=== PATIENT | female | born 1950 | race Caucasian/White ===

== ENCOUNTER 2018-12-30 19:33 | Observation (INO) | payer OTHER ==
--- OUTSIDE RECORDS SUMMARY | 2018-12-30 19:36 | XMS REPORT ---
:1950 [facility] Organization [facility] Address [address] [place] [address] Dr. [address] [place] [id number] Care Team Providers Name Role Phone MANE GASTON Unavailable Unavailable MATT TRACEY Unavailable Unavailable Problems This patient has no known problems. Allergies, Adverse Reactions, Alerts This patient has no known allergies or adverse reactions. Medications This patient has no known medications. Results Test Description Test Time Test Comments Text Results Atomic Results Result Comments COCOLTEN IN 2017-11-20 Reason for exam:->right FLUOROSCOPIC UNIT OR/30 MINUTE 11:29:00 first metatarsophalangeal UTILIZED-NO INCREMENTS lateral colateral ligament INTERPRETATION reconstruction and REQUESTED. hardware removal TROLYTES 2017-11-14 12:35:00 Test Item Value Reference Range Comments SODIUM (BEAKER) (test xqgn=905) 141 meq/L 136-145 POTASSIUM (BEAKER) (test gors=824) 4.0 meq/L 3.5-5.1 CHLORIDE (BEAKER) (test maet=274) 103 meq/L 98-107 CO2 (BEAKER) (test ddwq=317) 27 meq/L 22-29 BUN AND [id number] 12:35:00 Test Item Value Reference Range Comments BLOOD UREA NITROGEN 21 mg/dL 7-21 (BEAKER) (test kqrl=109) CREATININE (BEAKER) (test 0.68 mg/dL 0.57-1.25 tbik=798) EGFR (BEAKER) (test 86 mL/min/1.73 sq m ESTIMATED GFR IS NOT amar=3894) ACCURATE CREATININE CLEARANCE IN PREDICTING GLOMERULAR FILTRATION RATE. ESTIMATED GFR IS NOT APPLICABLE FOR DIALYSIS PATIENTS. [id number] 12:05:00 Test Item Value Reference Range Comments HEMOGLOBIN (BEAKER) (test mina=974) 14.0 GM/DL 11.2-15.7 CT, CTA, [id number] 17:59:00Addendum BeginsREPORT STATUS:A Addendum: I agree with the previously described non vascular findings by Dr. Alexander. Signed: Alireza Rodriguez MDReport Verified Date/Time: 10/09/201717: 59:38 Reading Location: [place] [address] Angio Body Reading RoomAddendum EndsFINAL REPORT CT angiography of the thoracic aorta, 09 October 2007 INDICATION: This is a 67 year oldfemale with dilation of the aorta presents for assessment. This study is performed in an attempt toavoid an invasive procedure. TECHNIQUE: Spiral acquisition before and during intravenous contrast administration using a Quture multidetector CT scanner. Images were obtained before and during the dynamic passage of intravenous contrast material. Multi-planar 3-D volume-rendering reconstruction was performed using an independent workstation interactively by the interpreting physician as well as the 3-D specialist for optimal visualisation of the thoracic aorta and its proximal branches. Please refer tothe contrast sheet scanned in the EPIC system for the amount and route of contrast given. This exam was performed according to our departmental dose-optimisation programme, which includes automated exposure control, adjustment of the mA and/or kV according to patient size and/ or use of iterative reconstruction technique. Dose modulation, iterative reconstruction, and/or weight based adjustment of themA/kV was utilized to reduce the radiation dose to as low as reasonably achievable. FINDINGS: VASCULAR: The pericardium has normal appearance. No pericardial effusion is identified. The central pulmonary artery is normal in calibre. There is no evidence of central pulmonary artery embolism. The cardiac chambers demonstrate normal atrioventricular and ventriculoarterial concordance, and systemic and pulmonary venous return. The left ventricle is normal in size. Left atrial enlargement is identified.The coronary artery origins are normal. Coronal artery calcifications identified in the proximal LADterritory. In addition, of note, the right coronary artery arises at the level of the sinotubular junction , a common variant. Regarding the aorta, the aortic root is normal in size. There is ectasia isseen in the ascending thoracic aorta. The transverse arch and descending thoracic aorta is normal incourse and calibre. Some scattered calcific atherosclerosis is identified in the descending thoracicaorta. No aneurysmal dilation is present. There is no evidence of acute aortic pathology , specifically, there is no dissection, intramural hematoma, or contained rupture. The arch vessel branching pattern is normal and the visualised portion of the arch vessels are widely patent. Quantitative dimensions of the aorta are as follows: 3.3 cm at the sinuses of Valsalva (the sino-tubular junction is preserved); 3.4 x 3.3 cm at the proximal ascending thoracic aorta; 3.9 x 3.7 cm at the mid ascending aorta; 3.3 cm at the distal ascending aorta; 2.7 cm at the mid transverse arch; 2.9 cm at the proximal descending aorta; 2.8 cm at the mid descending aorta; 2.5 cm at the diaphragmatic hiatus. NON-VASCULAR: The visualised thyroid gland appears unremarkable. The chest wall and mediastinum appear normal.No significant adenopathy is identified in the mediastinum. In the lung windows, no obvious endobronchial lesion is seen and no pleural effusion is identified. Some apical scarring is noted. Overall, no suspicious pulmonary nodule is identified. Some dependent changes are seen in the lung bases. Limited images of the upper abdomen reveals no gross abnormality. No acute bony pathology is identified except for the presence of some degenerative changes. CONCLUSIONS: 1. Only minimal ectasia is seen in the mid ascending thoracic aorta, that measures approximately 3.9 x 3.7 cm in diameter. The aortic root is unremarkable. The transverse arch and descending thoracic aorta is normal in course and calibre. There is scattered calcifications seen in the descending thoracic aorta. There is no evidence of acute aortic pathology, specifically, there is no dissection, intramural hematoma, or contained rupture. Quantitative dimension of the aorta are as described above. 2. Normal coronary artery origins.Scattered coronary artery calcification is identified in the LAD territory. 3. No acute pulmonary pathology. 4. Other findings as described above. 5. An addendum will be dictated regarding the non- vascular findings by the Vehicle Operator Technician Radiologist. Signed: Mahesh Alexander Verified Date/Time: 10/09/2017 11:03:30 Reading Location: [place] [address] Cardiology MRI [id number] 11:16:00 Test Item Value Reference Range Comments POC-CREATININE (BEAKER) 0.6 mg/dL 0.6-1.3 TESTED AT [facility] [address] [facility] (test ceks=2468) [facility] [address] POC-EGFR ([facility]) (test 99 mL/min/1.73M2 tdqn=8616)
--- OUTSIDE RECORDS SUMMARY | 2018-12-30 19:36 | XMS REPORT | Clinical Summary ---
:1950 Author Organization [facility] Address [address] [place] [address] Care Team Providers Name Role Phone Mohamud Velez MD Primary Care Provider Allergies Active Allergy Reactions Severity Noted Date Comments Iodine And Iodide Containing Products Hives 05/19/2015 Hydrocodone-Acetaminophen Hives 11/14/2017 Medications Medication Sig Dispensed Refills Start Date End Date Status levothyroxine Take 75 mcg by 0 Active (SYNTHROID, LEVOTHROID) mouth Every 75 MCG tablet morning on an empty stomach. nebivolol (BYSTOLIC) 5 Take 5 mg by 0 Active MG tablet mouth daily. losartan (COZAAR) 25 MG Take 25 mg by 0 Active tablet mouth daily. pravastatin (PRAVACHOL) Take 40 mg by 0 Active 40 MG tablet mouth daily. Active Problems Problem Noted Date Hallux varus 11/14/2017 Social History Tobacco Use Types Packs/Day Years Used Date Former Smoker Quit: 1997 Smokeless Tobacco: Never Used Alcohol Use Drinks/Week oz/Week Comments Yes occasional Sex Assigned at Date Recorded Not on file Job Start Date Occupation Industry Not on file Not on file Not on file Travel History Travel Start Travel End No recent travel history available. Last Filed Vital Signs Not on file Plan of Treatment Not on file Implants Implanted Type Area Distribution Operation Supervisor Device Shelf Model / Identifier Expiration Serial / Lot Date Imp Sys Foreft Intrnl Brce Ar-1530p-Cp - [id number] Fracture/ Right: [employer] 12/09/2021 AR-1530P-CP / Implanted: Qty: 1 on 11/15/2017 by Renan Olsen MD [employer] / [id number] Results Not on fileafter 12/29/2017 Insurance Payer Benefit Plan / Group Subscriber ID Type Phone Address MEDICARE MEDICARE A B xxxxxxxxxx Medicare MCR SUPPLEMENT/INDIVIDUAL AARP/[facility] xxxxxxxxxxx [facility] Advance Directives For more information, please contact:[address] [phone] Code Status Date Activated Date Inactivated Comments Full Code 11/15/2017 7:04 AM 11/15/2017 12:23 PM This code status was determined by: Patient
--- OUTSIDE RECORDS SUMMARY | 2018-12-30 19:36 | XMS REPORT | Clinical Summary ---
:1950 Author Organization [facility] Address [address] [place] [address] Care Team Providers Name Role Phone Mohamud Velez MD Primary Care Provider Unavailable Allergies Active Allergy Reactions Severity Noted Date Comments Iodine Hives 09/14/2016 No Known Drug Allergies 10/24/2015 Medications Medication Sig Dispensed Refills Start Date End Date Status BYSTOLIC 5 mg tablet TAKE 1 TABLET 90 tablet 3 12/16/2017 Active ONCE DAILY pravastatin TAKE 1 TABLET 90 tablet 3 11/12/2018 Active (PRAVACHOL) 40 MG DAILY tablet losartan (COZAAR) 25 Take 1 tablet 90 tablet 0 12/03/2018 Active MG tablet (25 mg total) by mouth daily. levothyroxine Take 1 tablet 90 tablet 0 12/03/2018 Active (SYNTHROID, LEVOXYL) (75 mcg 75 mcg tablet total) by mouth every morning. levothyroxine TAKE 1 TABLET 90 tablet 3 10/10/2016 12/03/2018 Discontinued (SYNTHROID, LEVOXYL) BY MOUTH 75 mcg tablet EVERY MORNING predniSONE Pt will take 0 08/08/2017 10/09/2018 Discontinued (DELTASONE) 10 mg 10 mg (1 tablet tablet) po every 6 hours the day before her CT scan for IVP dye allergy pravastatin TAKE 1 TABLET 90 tablet 3 11/18/2017 11/12/2018 Discontinued (PRAVACHOL) 40 MG DAILY tablet levothyroxine TAKE 1 TABLET 90 tablet 3 11/18/2017 10/09/2018 Discontinued (SYNTHROID, LEVOXYL) EVERY MORNING 75 mcg tablet losartan (COZAAR) 25 TAKE 1 TABLET 90 tablet 3 11/18/2017 12/03/2018 Discontinued MG tablet DAILY BYSTOLIC 5 mg tablet TAKE 1 TABLET 90 tablet 1 12/16/2017 10/09/2018 Discontinued BY MOUTH EVERY DAY nebivolol (BYSTOLIC) Take 1 tablet 90 tablet 3 12/16/2017 10/09/2018 Discontinued 5 MG tablet (5 mg total) by mouth once daily. Active Problems Problem Noted Date Aortic valve disease 10/03/2017 Overview: mod AI per ECHO 11-12-13, but 09/2017 Dr Bynum noted no aortic valve disease. 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 Robbie Rawls and Dr Bynum at [facility]. Last visit 09/2017 he advised f/ u with MRI every 18-24 months rather than yearly. 09/2017: "Only minimal ectasia is seen in the mid [...] is no dissection, intramural hematoma, or contained rupture." Essential hypertension 10/24/2015 Pure hypercholesterolemia 10/24/2015 Acquired hypothyroidism 10/24/2015 Menopausal symptom 10/24/2015 Vitamin D deficiency 10/24/2015 Overview: Bone density 09/2018: Normal Encounters Date Type Specialty Care Team Description 11/12/2018 Refill Internal Medicine Mohamud Velez MD 10/17/2018 Telephone Internal Medicine Mohamud Velez MD 10/09/2018 Office Visit Internal Medicine Mohamud Velez Annual visit for general adult medical examination with abnormal findings (Primary Dx); MD [place] Thoracic aortic aneurysm without rupture (HCC); Pure hypercholesterolemia; Encounter for long-term (current) use of medications; Inflammatory osteoarthritis; Acquired hypothyroidism; Vitamin D deficiency; Non-rheumatic mitral regurgitation; Essential hypertension; Tinnitus, unspecified laterality 08/15/2018 Telephone Internal Medicine Mohamud Velez MD after 12/29/2017 Immunizations Name Dates Previously Given Next Due FLUZONE HIGH-DOSE PF 06/12/2017, 05/28/2017 Hep A / Hep B 10/17/2017, 03/27/2017 INFLUENZA QUAD 08/26/2016 Influenza, Unspecified 05/12/2018, 05/12/2014 Meningococcal MCV4P 03/27/2017 Pneumococcal Conjugate 13-Valent 02/02/2015 Pneumococcal Polysaccharide 08/12/2012 Tdap 05/12/2014 Zoster 08/12/2013 Zoster Vaccine Recombinant 11/11/2018, 12/17/2017 Family History Medical History Relation Name Comments Diabetes Brother Stroke Brother Stroke Brother Stroke Father Lung cancer Mother Relation Name Status Comments Brother Brother Father Mother Social History Tobacco Use Types Packs/Day Years Used Date Former Smoker Cigarettes Quit: 1986 Smokeless Tobacco: Never Used Alcohol Use Drinks/Week oz/Week Comments No Sex Assigned at Date Recorded Not on file Job Start Date Occupation Industry Not on file Not on file Not on file Travel History Travel Start Travel End No recent travel history available. Last Filed Vital Signs Vital Sign Reading Time Taken Blood Pressure 104/64 10/09/2018 1:38 PM [employer] Pulse 62 10/09/2018 1:34 PM [employer] Temperature 37.2 C (99 F) 10/09/2018 1:34 PM [employer] Respiratory Rate 16 10/09/2018 1:34 PM [employer] Oxygen Saturation 97% 10/09/2018 1:34 PM [employer] Inhaled Oxygen Concentration - - Weight 64.9 kg (143 lb) 10/09/2018 1:34 PM [employer] Height 158.8 cm (5' 2.5") 10/09/2018 1:34 PM [employer] Body Mass Index 25.74 10/09/2018 1:34 PM [employer] Plan of Treatment Date Type Specialty Care Team Description 10/12/2019 Office Visit Internal Medicine Mohamud Velez MD [address] [facility] [address] [place] [address] [id number] Health Maintenance Due Date Last Done Comments 65+ PNEUMOCOCCAL VACCINE (2 of 2 - 08/12/2017 02/02/2015, 08/12/2012 PPSV23) INFLUENZA VACCINE 03/12/2019 05/12/2018, 06/12/2017, 05/28/2017, Additional history exists BREAST CANCER SCREENING 10/08/2020 10/08/2018 COLON CANCER SCREENING 08/12/2024 08/12/2014 PNEUMOCOCCAL POLYSACCHARIDE VACCINE Completed 08/12/2012 AGE 65 AND OVER SHINGLES VACCINES Completed 11/11/2018, 12/17/2017 Procedures Procedure Name Priority Date/Time Associated Diagnosis Comments MICROSCOPIC Routine 10/09/2018 2:26 Results for this EXAMINATION PM [employer] procedure are in the results section. C-REACTIVE PROTEIN Routine 10/09/2018 2:26 Annual visit for Results for this PM [employer] general adult procedure are in medical examination the results with abnormal section. findings Thoracic aortic aneurysm without rupture (HCC) Pure hypercholesterolemia Encounter for long-term (current) use of medications Inflammatory osteoarthritis Acquired hypothyroidism Vitamin D deficiency Non-rheumatic mitral regurgitation Essential hypertension SEDIMENTATION RATE Routine 10/09/2018 2:26 Annual visit for Results for this [employer] general adult procedure are in medical examination the results with abnormal section. findings Thoracic aortic aneurysm without rupture (HCC) Pure hypercholesterolemia Encounter for long-term (current) use of medications Inflammatory osteoarthritis Acquired hypothyroidism Vitamin D deficiency Non-rheumatic mitral regurgitation Essential hypertension URINALYSIS, AUTOMATED Routine 10/09/2018 2:26 Annual visit for Results for this WITH MICROSCOPY [employer] general adult procedure are in medical examination the results with abnormal section. findings Thoracic aortic aneurysm without rupture (HCC) Pure hypercholesterolemia Encounter for long-term (current) use of medications Inflammatory osteoarthritis Acquired hypothyroidism Vitamin D deficiency Non-rheumatic mitral regurgitation Essential hypertension THYROID STIMULATING Routine 10/09/2018 2:26 Annual visit for Results for this HORMONE [employer] general adult procedure are in medical examination the results with abnormal section. findings Thoracic aortic aneurysm without rupture (HCC) Pure hypercholesterolemia Encounter for long-term (current) use of medications Inflammatory osteoarthritis Acquired hypothyroidism Vitamin D deficiency Non-rheumatic mitral regurgitation Essential hypertension MAGNESIUM LEVEL Routine 10/09/2018 2:26 Annual visit for Results for this PM [employer] general adult procedure are in medical examination the results with abnormal section. findings Thoracic aortic aneurysm without rupture (HCC) Pure hypercholesterolemia Encounter for long-term (current) use of medications Inflammatory osteoarthritis Acquired hypothyroidism Vitamin D deficiency Non-rheumatic mitral regurgitation Essential hypertension LIPID PANEL Routine 10/09/2018 2:26 Annual visit for Results for this PM [employer] general adult procedure are in medical examination the results with abnormal section. findings Thoracic aortic aneurysm without rupture (HCC) Pure hypercholesterolemia Encounter for long-term (current) use of medications Inflammatory osteoarthritis Acquired hypothyroidism Vitamin D deficiency Non-rheumatic mitral regurgitation Essential hypertension HEMOGLOBIN A1C Routine 10/09/2018 2:26 Annual visit for Results for this PM [employer] general adult procedure are in medical examination the results with abnormal section. findings Thoracic aortic aneurysm without rupture (HCC) Pure hypercholesterolemia Encounter for long-term (current) use of medications Inflammatory osteoarthritis Acquired hypothyroidism Vitamin D deficiency Non-rheumatic mitral regurgitation Essential hypertension COMPREHENSIVE Routine 10/09/2018 2:26 Annual visit for Results for this METABOLIC PANEL [employer] general adult procedure are in medical examination the results with abnormal section. findings Thoracic aortic aneurysm without rupture (HCC) Pure hypercholesterolemia Encounter for long-term (current) use of medications Inflammatory osteoarthritis Acquired hypothyroidism Vitamin D deficiency Non-rheumatic mitral regurgitation Essential hypertension CBC WITH PLATELET AND Routine 10/09/2018 2:26 Annual visit for Results for this DIFFERENTIAL PM [employer] general adult procedure are in medical examination the results with abnormal section. findings Thoracic aortic aneurysm without rupture (HCC) Pure hypercholesterolemia Encounter for long-term (current) use of medications Inflammatory osteoarthritis Acquired hypothyroidism Vitamin D deficiency Non-rheumatic mitral regurgitation Essential hypertension after 12/29/2017 Results Microscopic Examination (10/09/2018 2:26 PM [employer]) WBC, UA 0-5 0 - 5 /hpf [facility] RBC, UA None seen 0 - 2 /hpf [facility] Epithelial cells (non 0-10 0 - 10 /hpf [facility] renal) Mucus, UA Present Not Estab. [facility] Bacteria, UA None seen None seen/Few [facility] Specimen Narrative Performed At Performed at:[address] [place] [address] [id number] Chemistry Physics Teacher: Souleymane Cantrell MD, Phone:[phone] Performing Organization Address City/State/Zipcode Phone Number [facility] Urinalysis, automated with microscopy (10/09/2018 2:26 PM [employer]) Specific gravity, 1.010 1.005 - 1.030 [facility] urine pH, urine 6.0 5.0 - 7.5 [facility] Color, UA Yellow Yellow [facility] Appearance Clear Clear [facility] WBC esterase, urine Negative Negative [facility] Protein, UA Negative Negative/Trace [facility] Glucose, urine Negative Negative [facility] Ketones, UA Negative Negative [facility] Occult blood, urine Negative Negative [facility] Bilirubin, UA Negative Negative [facility] Urobilinogen, UA 0.2 0.2 - 1.0 mg/dL [facility] Nitrite, UA Negative Negative [facility] Microscopic CommentComment: [facility] examination Microscopic follows if indicated. Microscopic See below:Comment: [facility] examination Microscopic was indicated and was performed. Specimen Urine Narrative Performed At Performed at: - [id number] Chemistry Physics Teacher: Souleymane Cantrell MD, Phone:[phone] Performing Organization Address [facility] Phone Number [facility] Sedimentation rate (10/09/2018 2:26 PM [employer]) Sedimentation rate 2 0 - 40 mm/hr [facility] Specimen Blood Narrative Performed At Performed at: [id number] Chemistry Physics Teacher: Souleymane Cantrell MD, Phone:[phone] Performing Organization Address [facility] Phone Number [facility] CBC with platelet and differential (10/09/2018 2:26 PM [employer]) WBC 4.4 3.4 - 10.8 x10E3/uL [facility] RBC 4.46 3.77 - 5.28 [facility] x10E6/uL HGB 14.9 11.1 - 15.9 g/dL [facility] HCT 41.6 34.0 - 46.6 % [facility] MCV 93 79 - 97 fL [facility] MCH 33.4 (H) 26.6 - 33.0 pg [facility] MCHC 35.8 (H) 31.5 - 35.7 g/dL [facility] RDW 13.3 12.3 - 15.4 % [facility] Platelet count 186 150 - 379 x10E3/uL [facility] Neutrophils 52 Not Estab. % [facility] Lymphocytes 40 Not Estab. % [facility] Monocytes 8 Not Estab. % [facility] Eosinophils 0 Not Estab. % [facility] Basophils 0 Not Estab. % [facility] Neutrophils, absolute 2.3 1.4 - 7.0 x10E3/uL [facility] Lymphocytes, absolute 1.7 0.7 - 3.1 x10E3/uL [facility] Monocytes, absolute 0.3 0.1 - 0.9 x10E3/uL [facility] Eosinophils, absolute 0.0 0.0 - 0.4 x10E3/uL [facility] Basophils, absolute 0.0 0.0 - 0.2 x10E3/uL [facility] Immature granulocytes 0 Not Estab. % [facility] Immature grans (abs) 0.0 0.0 - 0.1 x10E3/uL [facility] Specimen Blood Narrative Performed At Performed at:[address] [place], [place] [id number] Chemistry Physics Teacher: Souleymane Cantrell MD, Phone:[phone] Performing Organization Address [facility] Phone Number [facility] C-reactive protein (10/09/2018 2:26 PM [employer]) Pathologist [facility] CRP 0.3 0.0 - 4.9 mg/L [facility] Specimen Blood Narrative Performed At Performed at:[address] [place], [place] [id number] Chemistry Physics Teacher: Souleymane Cantrell MD, Phone:[phone] Performing Organization Address [facility] Phone Number [facility] Thyroid stimulating hormone (10/09/2018 2:26 PM [employer]) [facility] TSH 0.982 0.450 - 4.500 uIU/mL [facility] Specimen Blood Narrative Performed At Performed at:[address] [place], [place] [id number] Chemistry Physics Teacher: Souleymane Cantrell MD, Phone:[phone] Performing Organization Address [facility] Phone Number [facility] Magnesium level (10/09/2018 2:26 PM [employer]) [facility] Magnesium 2.0 1.6 - 2.3 mg/dL [facility] Specimen Blood Narrative Performed At Performed at:[address] [place], [place] [id number] Chemistry Physics Teacher: Souleymane Cantrell MD, Phone:[phone] Performing Organization Address [facility] Phone Number [facility] Hemoglobin A1c (10/09/2018 2:26 PM [employer]) [facility] Hemoglobin A1C 5.6 4.8 - 5.6 % [facility] Comment: Prediabetes: 5.7 - 6.4 Diabetes: >6.4 Glycemic control for adults with diabetes: <7.0 Specimen Blood Narrative Performed At Performed at:01 - [facility] [address], [id number] Chemistry Physics Teacher: Souleymane Cantrell MD, Phone:[phone] Performing Organization Address [facility] Phone Number [facility] Lipid panel (10/09/2018 2:26 PM [employer]) Cholesterol 202 (H) 100 - 199 mg/dL [facility] Triglycerides 69 0 - 149 mg/dL [facility] HDL cholesterol 67 >39 mg/dL [facility] VLDL cholesterol len 14 5 - 40 mg/dL [facility] LDL cholesterol calculated 121 (H) 0 - 99 mg/dL [facility] Non-HDL cholesterol 135 (H) 0 - 129 mg/dL [facility] Specimen Blood Narrative Performed At Performed at: - [facility] [address] [place], [place] [id number] Chemistry Physics Teacher: Souleymane Cantrell MD, Phone:[phone] Performing Organization Address [facility] Phone Number [facility] Comprehensive metabolic panel (10/09/2018 2:26 PM [employer]) Glucose 93 65 - 99 mg/dL [facility] BUN, whole blood 13 8 - 27 mg/dL [facility] Creatinine 0.68 0.57 - 1.00 mg/dL [facility] EGFR Non-Afr. [place] 90 >59 mL/min/1.73 [facility] EGFR 103 >59 mL/min/1.73 [facility] BUN/creatinine ratio 19 12 - 28 [facility] Sodium 143 134 - 144 mmol/L [facility] Potassium 4.0 3.5 - 5.2 mmol/L [facility] Chloride 98 96 - 106 mmol/L [facility] CO2 27 20 - 29 mmol/L [facility] Calcium 10.0 8.7 - 10.3 mg/dL [facility] Protein 7.2 6.0 - 8.5 g/dL [facility] Albumin, S 5.0 (H) 3.6 - 4.8 g/dL [facility] Globulin, total 2.2 1.5 - 4.5 g/dL [facility] Albumin/globulin ratio 2.3 (H) 1.2 - 2.2 [facility] Total bilirubin 0.6 0.0 - 1.2 mg/dL [facility] Alkaline phosphatase 57 39 - 117 IU/L [facility] AST 25 0 - 40 IU/L [facility] ALT 22 0 - 32 IU/L [facility] Specimen Blood Narrative Performed At Performed at:01 - [facility] [place] [facility] [address], [id number] Chemistry Physics Teacher: Souleymane Cantrell MD, Phone:[phone] Performing Organization Address City/State/Zipcode Phone Number [facility] after 12/29/2017 Insurance Payer Benefit Plan / Subscriber ID Effective Phone Address Type Group Dates MEDICARE MEDICARE PART xxxxxxxxxxx 2014-Pres [place], [place] Medicare A AND B ent [employer] xxxxxxxxxx 2018-[facility] Commercial INSURANCE INSURANCE ent Advance Directives Patient has advance care planning documents on file. For more information, please contact:[place] [address]
[2018-12-30 20:27] LABS: Absolute Lymphocytes (CBC) 0.6 K/uL (0.7-4.9); Absolute Monocytes 0.7 K/uL (0.1-1.3); Absolute Neutrophil 5.6 K/uL (1.8-8.0); Basophils % 0.2 % (0-1.3); Eosinophils % 0.2 % (0-4.4); Hematocrit 40.5 % (36.0-45.0); Lymphocytes % 8.2 % (15.3-44.8); MPV 8.7 fL (7.6-11.3); Monocytes % 9.8 % (3.3-12.3); RBC Red Blood Cell Count 4.13 M/uL (3.86-4.86)
--- NOTE | 2018-12-30 20:28 | RAD REPORT ---
EXAM DESCRIPTION: RAD - Chest Pa And Lat (2 Views) - 12/30/2018 8:23 pm CLINICAL HISTORY: Cough and congestion, fever COMPARISON: None. TECHNIQUE: PA and lateral views of the chest were obtained. FINDINGS: The lungs are normal volume. Right lung field is clear. There is patchy lower left lung fi eld opacification. This is most likely a mild or early pneumonia in the lingula of the left upper lob e. No failure or volume overload. Heart size is normal and central vasculature is within normal [place] its. No pleural effusion or pneumothorax seen. No acute bony finding noted. No aortic abnormality. IMPRESSION: Small or early pneumonia in the anterior left lung base.
[2018-12-30 20:35] LABS: Protime INR 1.08
--- NOTE | 2018-12-30 20:41 | ER ---
Nurse's Notes [facility] Name: Leonie Jasso Age: 68 yrs Sex: Female : 1950 Arrival Date: 12/30/2018 Time: 19:36 Bed 28 Private MD: Diagnosis: Pneumonia due to other specified bacteria;Fever, unspecified;Weakness;Chronic obstructive pulmonary disease, unspecified;Hypoxemia Presentation: 12/30 19:36 Presenting complaint: Patient states: I have been having high fever since 3 days ago at ca1 102F and there is nothing I do at home to keep it down. I took baby aspirins and Tylenol for fever. Starting yesterday I felt short of breath at rest and my chest feels heavy. I feel like I can't take a deep breath. Pt denies any cough now or prior to the fever. Pt reported to have had diarrhea a day before the fever started. Transition of care: patient was not received from another setting of care. Onset of symptoms was December 30, 2018. Risk Assessment: Do you want to hurt yourself or someone else? Patient reports no desire to harm self or others. Initial Sepsis Screen: Does the patient meet any 2 criteria? No. Patient's initial sepsis screen is negative. Does the patient have a suspected source of infection? No. Patient's initial sepsis screen is negative. Care prior to arrival: None. 19:36 Method Of Arrival: Wheelchair ca1 19:36 Acuity: DOMENICO 3 ca1 Triage Assessment: 19:36 General: Appears in no apparent distress. comfortable, ill, Behavior is calm, ca1 cooperative, appropriate for age. Pain: Denies pain. Respiratory: Reports shortness of breath at rest since yesterday Onset: The symptoms/episode began/occurred yesterday, the patient has mild shortness of breath. Historical: - Allergies: 19:36 Iodine; ca1 19:36 Iodinated Contrast Media - IV Dye; ca1 - Home Meds: 19:36 pravastatin oral oral [Active]; levothyroxine oral [Active]; Bystolic oral oral ca1 [Active]; - PMHx: 19:36 Hypertension; Mitral Valve Regurgitation; Hypothyroidism; ca1 - PSHx: 19:36 Hysterectomy; Trigger Finger Surgery; Bunionectomy; ca1 - Immunization history:: Adult Immunizations up to date, Flu vaccine is up to date. - Social history:: Smoking status: Patient/guardian denies using tobacco. - Ebola Screening: : No symptoms or risks identified at this time. Screenin:40 Abuse screen: Denies threats or abuse. Denies injuries from another. Nutritional ca1 screening: No deficits noted. Tuberculosis screening: No symptoms or risk factors identified. Fall Risk None identified. Assessment: 19:40 General: Appears in no apparent distress. ill, Behavior is calm, cooperative, ca1 appropriate for age. Pain: Denies pain. Neuro: Level of Consciousness is awake, alert, obeys commands, Oriented to person, place, time, situation. Cardiovascular: Heart tones S1 S2 present Capillary refill < 3 seconds Patient's skin is warm and dry. Cardiovascular: Rhythm is sinus rhythm. Respiratory: Reports shortness of breath at rest since yesterday Airway is patent Respiratory effort is even, unlabored, Breath sounds are clear bilaterally. Denies cough. GI: Abdomen is flat, non-distended, Bowel sounds present X 4 quads. Abd is soft and non tender X 4 quads. : No deficits noted. No signs and/or symptoms were reported regarding the genitourinary system. EENT: No deficits noted. No signs and/or symptoms were reported regarding the EENT system. Derm: Skin is intact, is healthy with good turgor, Skin is pink, warm \T\ dry. Musculoskeletal: Circulation, motion, and sensation intact. Capillary refill < 3 seconds. 20:34 Reassessment: Patient appears in no apparent distress at this time. Patient and/or ca1 family updated on plan of care and expected duration. Pain level reassessed. Patient is alert, oriented x 3, equal unlabored respirations, skin warm/dry/pink. 21:29 Reassessment: Patient appears in no apparent distress at this time. Patient is alert, ca1 oriented x 3, equal unlabored respirations, skin warm/dry/pink. 22:24 Reassessment: Patient appears in no apparent distress at this time. Patient and/or ca1 family updated on plan of care and expected duration. Pain level reassessed. Patient is alert, oriented x 3, equal unlabored respirations, skin warm/dry/pink. Pending Room Assignment. 23:00 Reassessment: Patient appears in no apparent distress at this time. Patient is alert, ca1 oriented x 3, equal unlabored respirations, skin warm/dry/pink. Pt instructed on NPO prior to wheeling upstairs. Vital Signs: 19:36 BP 118 / 63; Pulse 86; Resp 19 S; Temp 102.9(O); Pulse Ox 92% on R/A; Weight 67.13 kg; ca1 Height 5 ft. 3 in. (160.02 cm); Pain 0/10; 20:45 BP 128 / 68; Pulse 92; Resp 16 S; Pulse Ox 93% on R/A; ca1 21:37 BP 121 / 64; Pulse 86; Resp 17 S; Pulse Ox 99% on R/A; ca1 22:25 BP 102 / 64; Pulse 86; Resp 19 S; Temp 100.4(O); Pulse Ox 95% on R/A; ca1 22:59 BP 106 / 63; Pulse 90; Resp 18 S; Temp 99.3(O); Pulse Ox 98% on R/A; ca1 19:36 Body Mass Index 26.22 (67.13 kg, 160.02 cm) ca1 ED Course: 19:36 Patient arrived in ED. am2 19:36 Arm band placed on right wrist. EKG completed in triage. Results shown to MD. ca1 19:39 Ara Ulrich, RN is Primary Nurse. ca1 19:40 Patient has correct armband on for positive identification. Placed in gown. Bed in low ca1 position. Side rails up X2. machine straw hat presser on. Pulse ox on. NIBP on. Warm blanket given. 19:44 Darwin Gilbert MD is Attending Physician. asia 20:05 No provider procedures requiring assistance completed. Inserted saline lock: 20 gauge ca1 in left antecubital area, using aseptic technique. Blood collected. 20:05 First set of blood cultures drawn by me. ca1 20:05 Initial lab(s) drawn, by ED staff, sent to lab. jp3 20:20 Second set of blood cultures drawn EKG done, by ED staff, reviewed by Darwin Gilbert MD.jp3 20:21 Triage completed. ca1 20:24 Chest Pa And Lat (2 Views) XRAY In Process Unspecified. EDMS 20:40 Mague Zaman MD is Hospitalizing Provider. asia 22:05 Urine collected: clean catch specimen, clear, natividad colored, Amount Voided: 120mL. jp3 22:16 Urine Dipstick--Ancillary (enter results) Sent. jp3 22:17 Urine Culture Sent. jp3 22:59 Patient admitted, IV remains in place. ca1 Administered Medications: 20:50 Drug: Tylenol 650 mg Route: PO; ca1 23:04 Follow up: Response: No adverse reaction; Temperature is decreased ca1 21:00 Drug: NS 0.9% 1000 ml Route: IV; Rate: 1 bolus; Site: left antecubital; ca1 23:05 Follow up: Urine output 310 ml; Response: No adverse reaction; IV Status: Completed ca1 infusion 21:00 Drug: SOLU-Medrol 125 mg Route: IVP; Site: left antecubital; ca1 23:04 Follow up: Response: No adverse reaction; Marked relief of symptoms ca1 21:04 CANCELLED (Duplicate Order): Atropine 0.5 mg IVP once asia 21:05 Drug: Xopenex 2.5 mg Route: Inhalation; ca1 21:05 Drug: AtroVENT Aerosol 0.5 mg Route: Inhalation; ca1 23:04 Follow up: Response: No adverse reaction; Temperature is decreased ca1 21:10 Drug: Rocephin - (cefTRIAXone) 2 grams Route: IVPB; Infused Over: 30 mins; Site: left ca1 antecubital; 22:00 Follow up: Response: No adverse reaction; IV Status: Completed infusion ca1 21:20 Drug: Zithromax 500 mg Route: IVPB; Infused Over: 1 hrs; Site: left antecubital; ca1 23:06 Follow up: Response: No adverse reaction; IV Status: Completed infusion ca1 Output: 23:05 Urine: 310ml; Total: 310ml. ca1 Outcome: 20:41 Decision to Hospitalize by Provider. [facility] 22:59 Admitted to Med/surg accompanied by tech, family with patient, via wheelchair, room ca1 212, with chart, Report called to Heidy Ferrari RN 22:59 Condition: stable 22:59 Instructed on the need for admit. 23:39 Patient left the ED. mg2 Signatures: Dispatcher [employer] EDMS Darwin Gilbert MD MD cha Moreno, Amanda am2 Joel Murray RN RN mg2 Jose F Ybarra jp3 Ara Ulrich RN RN ca1 Corrections: (The following items were deleted from the chart) 22:28 22:25 BP 121 / 66; Pulse 86bpm; Resp 19bpm; Spontaneous; Pulse Ox 99% RA; Temp 100.4F ca1 Oral; ca1
--- NOTE | 2018-12-30 20:41 | EDPHYS ---
Physician Documentation [facility] Name: Leonie Jasso Age: 68 yrs Sex: Female : 1950 Arrival Date: 12/30/2018 Time: 19:36 Bed 28 Private MD: ED Physician Darwin Gilbert HPI: 12/30 20:36 This 68 yrs old Female presents to ER via Wheelchair with complaints of asia Fever, Shortness Of Breath. 20:36 The patient reports fever, that was measured at 102.5 degrees Fahrenheit. Onset: The asia symptoms/episode began/occurred 3 day(s) ago. Modifying factors: there are no obvious modifying factors. Associated signs and symptoms: Pertinent positives: chills, cough, with yellow sputum. Severity of symptoms: At their worst the symptoms were mild in the emergency department the symptoms are unchanged. The patient has not experienced similar symptoms in the past. Historical: - Allergies: 19:36 Iodine; ca1 19:36 Iodinated Contrast Media - IV Dye; ca1 - Home Meds: 19:36 pravastatin oral oral [Active]; levothyroxine oral [Active]; Bystolic oral oral ca1 [Active]; - PMHx: 19:36 Hypertension; Mitral Valve Regurgitation; Hypothyroidism; ca1 - PSHx: 19:36 Hysterectomy; Trigger Finger Surgery; Bunionectomy; ca1 - Immunization history:: Adult Immunizations up to date, Flu vaccine is up to date. - Social history:: Smoking status: Patient/guardian denies using tobacco. - Ebola Screening: : No symptoms or risks identified at this time. ROS: 20:37 Eyes: Negative for injury, pain, redness, and discharge, ENT: Negative for injury, asia pain, and discharge, Neck: Negative for injury, pain, and swelling, Cardiovascular: Negative for chest pain, palpitations, and edema, Abdomen/GI: Negative for abdominal pain, nausea, vomiting, diarrhea, and constipation, Back: Negative for injury and pain, : Negative for injury, bleeding, discharge, and swelling, MS/Extremity: Negative for injury and deformity, Skin: Negative for injury, rash, and discoloration, Neuro: Negative for headache, weakness, numbness, tingling, and seizure, Psych: Negative for depression, anxiety, suicide ideation, homicidal ideation, and hallucinations, Allergy/Immunology: Negative for hives, rash, and allergies, Endocrine: Negative for neck swelling, polydipsia, polyuria, polyphagia, and marked weight changes, Hematologic/Lymphatic: Negative for swollen nodes, abnormal bleeding, and unusual bruising. 20:37 Constitutional: Positive for chills, fever. 20:37 Respiratory: Positive for cough, shortness of breath, wheezing, expiratory. Exam: 20:37 Head/Face: Normocephalic, atraumatic. Eyes: Pupils equal round and reactive to light, asia extra-ocular motions intact. Lids and lashes normal. Conjunctiva and sclera are non-icteric and not injected. Cornea within normal limits. Periorbital areas with no swelling, redness, or edema. ENT: Nares patent. No nasal discharge, no septal abnormalities noted. Tympanic membranes are normal and external auditory canals are clear. Oropharynx with no redness, swelling, or masses, exudates, or evidence of obstruction, uvula midline. Mucous membranes moist. Neck: Trachea midline, no thyromegaly or masses palpated, and no cervical lymphadenopathy. Supple, full range of motion without nuchal rigidity, or vertebral point tenderness. No Meningismus. Chest/axilla: Normal chest wall appearance and motion. Nontender with no deformity. No lesions are appreciated. Cardiovascular: Regular rate and rhythm with a normal S1 and S2. No gallops, murmurs, or rubs. Normal PMI, no JVD. No pulse deficits. Abdomen/GI: Soft, non-tender, with normal bowel sounds. No distension or tympany. No guarding or rebound. No evidence of tenderness throughout. Back: No spinal tenderness. No costovertebral tenderness. Full range of motion. Female : Normal external genitalia. Skin: Warm, dry with normal turgor. Normal color with no rashes, no lesions, and no evidence of cellulitis. MS/ Extremity: Pulses equal, no cyanosis. Neurovascular intact. Full, normal range of motion. Neuro: Awake and alert, GCS 15, oriented to person, place, time, and situation. Cranial nerves II-XII grossly intact. Motor strength 5/5 in all extremities. Sensory grossly intact. Cerebellar exam normal. Normal gait. Psych: Awake, alert, with orientation to person, place and time. Behavior, mood, and affect are within normal limits. 20:37 Constitutional: The patient appears febrile. 20:37 Respiratory: the patient does not display signs of respiratory distress, Respirations: no acute changes, labored breathing, is not present, Breath sounds: decreased breath sounds, that are mild, are located in both bases, rhonchi, that are mild, are located in both bases, are heard in the left lower lobe and left posterior lower lobe. Vital Signs: 19:36 BP 118 / 63; Pulse 86; Resp 19 S; Temp 102.9(O); Pulse Ox 92% on R/A; Weight 67.13 kg; ca1 Height 5 ft. 3 in. (160.02 cm); Pain 0/10; 20:45 BP 128 / 68; Pulse 92; Resp 16 S; Pulse Ox 93% on R/A; ca1 21:37 BP 121 / 64; Pulse 86; Resp 17 S; Pulse Ox 99% on R/A; ca1 22:25 BP 102 / 64; Pulse 86; Resp 19 S; Temp 100.4(O); Pulse Ox 95% on R/A; ca1 22:59 BP 106 / 63; Pulse 90; Resp 18 S; Temp 99.3(O); Pulse Ox 98% on R/A; ca1 19:36 Body Mass Index 26.22 (67.13 kg, 160.02 cm) ca1 MDM: 19:44 Patient medically screened. [facility] 20:39 Data reviewed: vital signs, nurses notes, lab test result(s), EKG, radiologic studies, asia plain films. 12/30 19:46 Order name: Basic Metabolic Panel [facility] 12/30 19:46 Order name: CBC with Diff [facility] 12/30 19:46 Order name: LFT's [facility] 12/30 19:46 Order name: Magnesium [facility] 12/30 19:46 Order name: NT PRO-BNP [facility] 12/30 19:46 Order name: PT-INR; Complete Time: 21:05 [facility] 12/30 19:46 Order name: Troponin (emerg Dept Use Only); Complete Time: 21:05 [facility] 12/30 19:46 Order name: Blood Culture Adult (2) [facility] 12/30 19:46 Order name: Lactate; Complete Time: 21:05 [facility] 12/30 19:46 Order name: Procalcitonin; Complete Time: 21:05 [facility] 12/30 19:46 Order name: Sputum Culture [facility] 12/30 19:47 Order name: Urine Culture [facility] 12/30 19:47 Order name: Basic Metabolic Panel; Complete Time: 21:05 [facility] 12/30 19:47 Order name: CBC with Automated Diff; Complete Time: 20:35 [facility] 12/30 19:46 Order name: Chest Pa And Lat (2 Views) XRAY; Complete Time: 20:35 [facility] 12/30 19:47 Order name: Liver (Hepatic) Function; Complete Time: 21:05 [facility] 12/30 19:47 Order name: Magnesium; Complete Time: 21:05 [facility] 12/30 19:47 Order name: NT PRO-BNP; Complete Time: 21:05 [facility] 12/30 21:27 Order name: Flu [facility] 12/30 21:27 Order name: Strep [facility] 12/30 21:43 Order name: Procalcitonin [facility] 12/30 22:11 Order name: Urine Dipstick--Ancillary (enter results) [facility] 12/30 22:15 Order name: Urine Dipstick-Ancillary [facility] 12/30 19:46 Order name: EKG; Complete Time: 19:48 [facility] 12/30 19:46 Order name: Cardiac monitoring; Complete Time: 20:15 [facility] 12/30 19:46 Order name: EKG - Nurse/Tech; Complete Time: 20:15 [facility] 12/30 19:46 Order name: IV Saline Lock; Complete Time: 20:15 [facility] 12/30 19:46 Order name: Labs collected and sent; Complete Time: 20:16 [facility] 12/30 19:46 Order name: O2 Per Protocol; Complete Time: 20:16 [facility] 12/30 19:46 Order name: O2 Sat Monitoring; Complete Time: 20:56 [facility] 12/30 19:47 Order name: Urine Dipstick-Ancillary (obtain specimen); Complete Time: 22:17 [facility] 12/30 21:43 Order name: NPO; Complete Time: 22:16 EDKY Administered Medications: 20:50 Drug: Tylenol 650 mg Route: PO; ca1 23:04 Follow up: Response: No adverse reaction; Temperature is decreased ca1 21:00 Drug: NS 0.9% 1000 ml Route: IV; Rate: 1 bolus; Site: left antecubital; ca1 23:05 Follow up: Urine output 310 ml; Response: No adverse reaction; IV Status: Completed ca1 infusion 21:00 Drug: SOLU-Medrol 125 mg Route: IVP; Site: left antecubital; ca1 23:04 Follow up: Response: No adverse reaction; Marked relief of symptoms ca1 21:04 CANCELLED (Duplicate Order): Atropine 0.5 mg IVP once asia 21:05 Drug: Xopenex 2.5 mg Route: Inhalation; ca1 21:05 Drug: AtroVENT Aerosol 0.5 mg Route: Inhalation; ca1 23:04 Follow up: Response: No adverse reaction; Temperature is decreased ca1 21:10 Drug: Rocephin - (cefTRIAXone) 2 grams Route: IVPB; Infused Over: 30 mins; Site: left ca1 antecubital; 22:00 Follow up: Response: No adverse reaction; IV Status: Completed infusion ca1 21:20 Drug: Zithromax 500 mg Route: IVPB; Infused Over: 1 hrs; Site: left antecubital; ca1 23:06 Follow up: Response: No adverse reaction; IV Status: Completed infusion ca1 Disposition: 12/30/18 20:41 Hospitalization ordered by Mague Zaman for Inpatient Admission. Preliminary diagnosis are Pneumonia due to other specified bacteria, Fever, unspecified, Weakness, Chronic obstructive pulmonary disease, unspecified, Hypoxemia. - Bed requested for Telemetry/MedSurg (Inpatient). - Status is Inpatient Admission. mg2 - Condition is Fair. - Problem is new. - Symptoms have improved. UTI on Admission? No Signatures: Dispatcher [employer] EDDarwin Garibay MD MD cha Garcia, Cindy, RN RN cg Joel Murray RN RN mg2 Ara Ulrich RN RN ca1 Corrections: (The following items were deleted from the chart) 21:04 20:36 Atropine 0.5 mg IVP once ordered. [facility] 22:31 20:41 Hospitalization Ordered by Mague Zaman MD for Inpatient Admission. Preliminary cg diagnosis is Pneumonia due to other specified bacteria; Fever, unspecified; Weakness; Chronic obstructive pulmonary disease, unspecified; Hypoxemia. Bed requested for Telemetry/MedSurg (Inpatient). Status is Inpatient Admission. Condition is Fair. Problem is new. Symptoms have improved. UTI on Admission? No. asia 23:39 22:31 12/30/2018 20:41 Hospitalization Ordered by Mague Zaman MD for Inpatient mg2 Admission. Preliminary diagnosis is Pneumonia due to other specified bacteria; Fever, unspecified; Weakness; Chronic obstructive pulmonary disease, unspecified; Hypoxemia. Bed requested for Telemetry/MedSurg (Inpatient). Status is Inpatient Admission. Condition is Fair. Problem is new. Symptoms have improved. UTI on Admission? No. cg
[2018-12-30 20:50] LABS: ALT/SGPT 27 U/L (12-78); AST/SGOT 19 U/L (15-37); Albumin 3.7 g/dL (3.4-5.0); Alkaline Phosphatase 70 U/L (45-117); BUN Blood Urea Nitrogen 15 mg/dL (7-18); Bicarbonate 25 mmol/L (21-32); Bilirubin Direct 0.2 mg/dL (0-0.2); Bilirubin Total 0.7 mg/dL (0.2-1.0); Glucose Level 80 mg/dL (74-106); Magnesium 2.1 mg/dL (1.8-2.4); NT PRO-BNP 218 pg/mL (<125); Potassium 3.9 mmol/L (3.5-5.1); Protein, Total 7.8 g/dL (6.4-8.2); Sodium Level 136 mmol/L (136-145); Troponin (Emerg Dept Use Only) < 0.02 ng/mL (0.0-0.045)
[2018-12-30] MEDS ORDERED: METHYLPREDNISOLONE 125 MG INJ ONE (21:13)
[2018-12-30] MEDS ORDERED: LEVALBUTEROL 1.25 MG/3 ML NEB ONE (21:14)
[2018-12-30] MEDS ORDERED: AZITHROMYCIN 500 MG INJ IVPB ONE (21:14)
[2018-12-30] MEDS ORDERED: ATROPINE SULF 1 MG/10 ML SYR IV ONE (21:15)
[2018-12-30] MEDS ORDERED: NA CHLORIDE 0.9% 1,000 ML ONE (21:15)
[2018-12-30] MEDS ORDERED: NA CHLORIDE 0.9% 250 ML ONE (21:15)
[2018-12-30] MEDS ORDERED: CEFTRIAXONE/SWI 1gm 1 GM/10 ML SYR ONE ×2 (21:16→23:15)
[2018-12-30] MEDS ORDERED: ACETAMINOPHEN 325 MG TABLET ONE (21:22)
[2018-12-30] MEDS ORDERED: IPRATROPIUM BROM 0.5MG/2.5ML ONE (21:23)
[2018-12-30] MEDS ORDERED: ONDANSETRON 4 MG/2 ML VIAL IV PRN (21:37)
[2018-12-30] MEDS ORDERED: ACETAMINOPHEN 500 MG TAB PO PRN (21:37)
[2018-12-30] MEDS: NA CHLORIDE 0.9% 1,000 ML IV SCH (22:00)
[2018-12-30 22:14] LABS: Urine Blood TRACE (NEG); Urine Glucose NEGATIVE (NEG); Urine Protein TRACE (NEG); Urine Specific Gravity 1.025 (1.005-1.030); Urine pH 5.5 (5.0-7.0)
[2018-12-31] MEDS: NA CHLORIDE 0.9% 1,000 ML IV SCH (00:16)
[2018-12-31] MEDS: IPRATROPIUM BROM 0.5MG/2.5ML NEB SCH ×2 (00:45→08:00)
[2018-12-31] MEDS: ALBUTEROL 2.5 MG/3 ML NEB SOL NEB SCH ×2 (00:45→08:00)
[2018-12-31 01:15] VITALS: BMI 26.9
[2018-12-31] MEDS ORDERED: CEFTRIAXONE/SWI 1gm 1 GM/10 ML SYR ONE (04:38)
--- NOTE | 2018-12-31 05:11 | P.HP ---
Certification for Inpatient Patient admitted to: Observation With expected LOS: <2 Midnights Patient will require the following post-hospital care: None Practitioner: I am a practitioner with admitting privileges, knowledge of patient current condition, hospital course, and medical plan of care. Services: Services provided to patient in accordance with Admission requirements found in Title 42 Section 412.3 of the Code of Federal Regulations Patient History Date of Service: 12/30/18 Reason for admission: Left lower lobe pneumonia History of Present Illness: Pt is a 68yo who was admitted to the hospital with persistent coughing. [place] , Dr. Mortensenson. Patient got home on Saturday and by Saturday she had a cough and fevers. Her fevers were not resolving so they brought her into the emergency room for further evaluation. In the emergency room, her workup revealed a left lingular pneumonia. Pt was admitted to the hospital for further treatment under observation. Allergies Iodinated Contrast- Oral and IV Dye Allergy (Verified 12/30/18 22:49) Hives/Rash iodine Allergy (Verified 12/30/18 22:49) Hives/Rash Iodine and Iodide Containing Produc Adverse Reaction (Verified 12/30/18 22:49) Hives/Rash Home Medications: Levothyroxine [Synthroid] 75 mcg PO DAILY 12/30/18 Losartan Potassium 1 tab PO BEDTIME 12/30/18 Meloxicam [Mobic*] 1 tab PO BID 12/30/18 Nebivolol HCl [Bystolic*] 1 tab PO BEDTIME 12/30/18 Pravastatin Sodium 40 mg PO BEDTIME 12/30/18 - Past Medical/Surgical History Has patient received pneumonia vaccine in the past: Yes Diabetic: No -: Hypothyroidism -: High cholesterol prevention -: Mitral valve regurgitation -: Hypertension -: Bunionectomy both feet -: Trigger finger both releases -: Hysterectomy - Family History Brother Medical History: Other (see notes) Notes: ALS Father Medical History: Hypertension, Other (see notes) Notes: Stroke BRothers Medical History: Hypertension, Diabetes - Social History Smoking Status: Former smoker Alcohol use: Yes CD- Drugs: No Caffeine use: Yes Place of Residence: Home Review of Systems 10-point ROS is otherwise unremarkable Physical Examination - Vital Signs Temperature: 97.5 F Blood Pressure: 114/65 Pulse: 69 Respirations: 20 Pulse Ox (%): 94 - Physical Exam General: Alert, In no apparent distress, Oriented x3 HEENT: Atraumatic, PERRLA, Mucous membr. moist/pink, EOMI, Sclerae nonicteric Neck: Supple, 2+ carotid pulse no bruit, No LAD, Without JVD or thyroid abnormality Respiratory: Clear to auscultation bilaterally, Normal air movement Cardiovascular: Regular rate/rhythm, Normal S1 S2, No murmurs Gastrointestinal: Normal bowel sounds, Soft and benign, Non-distended, No tenderness Musculoskeletal: No clubbing, No swelling, No tenderness Integumentary: No rashes Neurological: Normal gait, Normal speech, Normal strength at 5/5 x4 extr, Normal tone, Sensation intact, Cranial nerves 3-12 intact, Normal affect Lymphatics: No axilla or inguinal lymphadenopathy - Studies Laboratory Data (last 24 hrs) 12/30/18 20:05: PT 12.7 H, INR 1.08 12/30/18 20:05: WBC 6.9, Hgb 13.8, Hct 40.5, Plt Count 141 L 12/30/18 20:05: Sodium 136, Potassium 3.9, BUN 15, Creatinine 0.71, Glucose 80, Magnesium 2.1, Total Bilirubin 0.7, AST 19, ALT 27, Alkaline Phosphatase 70 Microbiology Data (last 24 hrs): 12/30/18 21:25 Nasopharnyx Influenza Type A Antigen Screen - Final 12/30/18 21:25 Nasopharnyx Influenza Type B Antigen Screen - Final Assessment & Plan - Problems (Diagnosis) (1) Left lower lobe pneumonia Current Visit: Yes Status: Acute (2) History of essential hypertension Current Visit: Yes Status: Acute - Plan 1. Continue with IV antibiotics 2. Awaiting sputum and blood culture 3. Repeat chest x-ray 4. Continue with nebs as needed 5. O2 per protocol 6. Continue with gentle hydration 7. Repeat labs including CBC and renal function in a.m. 8. GI and DVT prophylaxis Discharge Plan: Home Plan to discharge in: 24 Hours - Advance Directives Does patient have a Living Will: Yes Does patient have a Durable POA for Healthcare: Yes - Code Status/Comfort Care Code Status Assessed: Yes Code Status: Full Code Critical Care: No Time Spent Managing PTS Care (In Minutes): 45
[2018-12-31] MEDS ORDERED: CEFTRIAXONE 1 GM/NS 50 ML 1 GM/50 ML BAG IV SCH (06:00)
[2018-12-31 06:02] LABS: ALT/SGPT 23 U/L (12-78); AST/SGOT 17 U/L (15-37); Albumin 3.2 g/dL (3.4-5.0); Alkaline Phosphatase 61 U/L (45-117); BUN Blood Urea Nitrogen 14 mg/dL (7-18); Bicarbonate 23 mmol/L (21-32); Bilirubin Total 0.2 mg/dL (0.2-1.0); Glucose Level 170 mg/dL (74-106); HDL Cholesterol 62 mg/dL (40-60); LDL Cholesterol, Calculated 135 (<130); Magnesium 2.2 mg/dL (1.8-2.4); NT PRO-BNP 251 pg/mL (<125); Phosphorus 3.2 mg/dL (2.5-4.9); Protein, Total 7.1 g/dL (6.4-8.2); Sodium Level 142 mmol/L (136-145)
[2018-12-31 06:16] LABS: Absolute Lymphocytes (CBC) 0.3 K/uL (0.7-4.9); Absolute Monocytes 0.1 K/uL (0.1-1.3); Absolute Neutrophil 5.4 K/uL (1.8-8.0); Eosinophils % 0.1 % (0-4.4); Hematocrit 36.9 % (36.0-45.0); Lymphocytes % 5.7 % (15.3-44.8); Monocytes % 1.8 % (3.3-12.3); RBC Red Blood Cell Count 3.81 M/uL (3.86-4.86)
[2018-12-31] MEDS ORDERED: LEVOTHYROXINE SOD 0.075 MG TAB PO SCH (07:00)
--- NOTE | 2018-12-31 07:27 | RAD REPORT ---
EXAM DESCRIPTION: RAD - Chest Single View - 12/31/2018 7:12 am CLINICAL HISTORY: Pneumonia COMPARISON: December 30 TECHNIQUE: AP portable chest image was obtained [id number] hours . FINDINGS: Left base infiltrate has show no improvement from prior day imaging. No new right lung fie ld finding. Heart and vasculature are normal. No measurable pleural effusion and no pneumothorax. No acute bony abnormality seen. No acute aortic findings suspected. IMPRESSION: Stable appearance to the left lung base pneumonia. No new or progressive finding.
[2018-12-31 07:54] LABS: Blood Morphology Comment NOT SEEN (NOT SEEN); Platelet Estimate ADEQ; Urine White Blood Cell Casts OK
[2018-12-31] MEDS ORDERED: AZITHROMYCIN IV 500 MG in NA CHLORIDE 0.9% 250 ML IVPB SCH ×2 (08:00→21:00)
[2018-12-31] MEDS ORDERED: ENOXAPARIN 40 MG/0.4 ML SQ SCH (09:00)
[2018-12-31] MEDS ORDERED: CEFTRIAXONE/SWI 1gm 1 GM/10 ML SYR IV SCH (09:00)
--- NOTE | 2018-12-31 10:28 | EKG ---
Test Date: 2018-12-31 Test Time: 00:37:52 Tangled Yarn Spool Straightener: RT MEASUREMENT RESULTS: Intervals: Rate: 75 HI: 176 QRSD: 92 QT: 434 QTc: 484 [place]: P: 54 HI: 176 QRS: -52 T: 27 INTERPRETIVE STATEMENTS: Normal sinus rhythm Left anterior fascicular block Nonspecific T wave abnormality Prolonged QT Abnormal ECG Compared to ECG 12/30/2018 19:59:23 T-wave abnormality now present Prolonged QT interval now present Electronically Signed On 12-31-18 10:28:09 CDT by Chad Ho
[2018-12-31 10:30] VITALS: O2SAT 95
--- NOTE | 2018-12-31 10:30 | EKG ---
Test Date: 2018-12-30 Test Time: 19:59:23 Structural Steel Fitter: MADELINE MEASUREMENT RESULTS: Intervals: Rate: 84 UT: 142 QRSD: 86 QT: 358 QTc: 423 [place]: P: 15 UT: 142 QRS: -64 T: 55 INTERPRETIVE STATEMENTS: Normal sinus rhythm Left anterior fascicular block Abnormal ECG Compared to ECG 12/30/2018 19:58:55 No significant changes Electronically Signed On 12-31-18 10:28:46 CDT by Chad Ho
[2018-12-31 10:43] VITALS: BP 121/60; TEMP 97
--- NOTE | 2018-12-31 12:11 | P.SSS ---
Patient History Date of Service: 12/31/18 Reason for admission: Left lower lobe pneumonia History of Present Illness: Pt is a 68yo who was admitted to the hospital with persistent coughing. [place] , Ulysses Romero. Patient got home on Saturday and by Saturday she had a cough and fevers. Her fevers were not resolving so they brought her into the emergency room for further evaluation. In the emergency room, her workup revealed a left lingular pneumonia. Pt was admitted to the hospital for further treatment under observation. Allergies Allergies Iodinated Contrast- Oral and IV Dye Allergy (Verified 12/30/18 22:49) Hives/Rash iodine Allergy (Verified 12/30/18 22:49) Hives/Rash Iodine and Iodide Containing Produc Adverse Reaction (Verified 12/30/18 22:49) Hives/Rash Home Medications: Levothyroxine [Synthroid*] 75 mcg PO DAILY 12/30/18 Losartan Potassium 1 tab PO BEDTIME 12/30/18 Meloxicam [Mobic*] 1 tab PO BID 12/30/18 Nebivolol HCl [Bystolic*] 1 tab PO BEDTIME 12/30/18 Pravastatin Sodium 40 mg PO BEDTIME 12/30/18 - Past Medical/Surgical History Has patient received pneumonia vaccine in the past: Yes Diabetic: No -: Hypothyroidism -: High cholesterol prevention -: Mitral valve regurgitation -: Hypertension -: Bunionectomy both feet -: Trigger finger both releases -: Hysterectomy - Family History Brother -: Other (see notes) Notes: ALS Father -: Hypertension, Other (see notes) Notes: Stroke BRothers -: Hypertension, Diabetes - Social History Smoking Status: Former smoker Alcohol use: Yes CD- Drugs: No Caffeine use: Yes Place of Residence: Home Review of Systems 10-point ROS is otherwise unremarkable Physical Examination - Vital Signs Temperature: 97 F Blood Pressure: 121/60 Pulse: 74 Respirations: 18 Pulse Ox (%): 95 - Physical Exam General: Alert, In no apparent distress HEENT: Atraumatic, PERRLA, Mucous membr. moist/pink, EOMI, Sclerae nonicteric Neck: Supple, 2+ carotid pulse no bruit, No LAD, Without JVD or thyroid abnormality Respiratory: Clear to auscultation bilaterally, Normal air movement Cardiovascular: Regular rate/rhythm, Normal S1 S2 Gastrointestinal: Normal bowel sounds, No tenderness Musculoskeletal: No tenderness Integumentary: No rashes Neurological: Normal gait, Normal speech, Normal strength at 5/5 x4 extr, Normal tone, Normal affect Lymphatics: No axilla or inguinal lymphadenopathy - Studies Laboratory Data (last 24 hrs) 12/30/18 20:05: PT 12.7 H, INR 1.08 12/30/18 20:05: WBC 6.9, Hgb 13.8, Hct 40.5, Plt Count 141 L 12/30/18 20:05: Sodium 136, Potassium 3.9, BUN 15, Creatinine 0.71, Glucose 80, Magnesium 2.1, Total Bilirubin 0.7, AST 19, ALT 27, Alkaline Phosphatase 70 Microbiology Data (last 24 hrs): 12/30/18 21:25 Nasopharnyx Influenza Type A Antigen Screen - Final 12/30/18 21:25 Nasopharnyx Influenza Type B Antigen Screen - Final - Diagnosis (Problem(s)) (1) Left lower lobe pneumonia Current Visit: Yes Status: Acute Plan: Viral pneumonia Qualifiers: Pneumonia type: due to unspecified organism Qualified Code(s): J18.1 - Lobar pneumonia, unspecified organism (2) History of essential hypertension Current Visit: Yes Status: Chronic Treatment Summary: Overall during the hospital stay patient remained stable The patient was initially admitted to the hospital for pneumonia. X-ray was consistent with left lingual pneumonia. Pro calcitonin and a PVC were negative for bacterial pneumonia. Patient most likely has viral pneumonia. Patient was given antibiotics x1 here in the hospital. Upon resolution of her symptoms she was then discharged home under stable condition. Patient was asked to follow up with primary care provider and has supportive management. No antibiotics were prescribed as pro calcitonin and white counts were within normal limits. Patient was given incentive spirometer to use at home patient was also asked to follow up with pulmonology in about 1-2 days post discharge. If no improvement seen patient was asked to return to the ER for further care. Patient demonstrate understanding and thus she was discharged home under stable condition - Disposition Disposition: ROUTINE DISCHARGE Condition: GOOD Diet: Regular Activity: Ad tracy
[2018-12-31] MEDS ORDERED: NEBIVOLOL HCL 5 MG TAB PO SCH (21:00)
[2018-12-31] MEDS ORDERED: LOSARTAN POTASSIUM 50 MG TABLET PO SCH (21:00)
[2018-12-31] MEDS ORDERED: ATORVASTATIN 10 MG TAB PO SCH (21:00)
== END 2018-12-31 12:59 | disposition home or self-care (01) ==
LOC: ER 19:33 → ERHOLD 21:48 → 2ND 23:01
PROVIDERS: ADMIT Hospitalist; ATTEND Family Medicine
DX: J18.1 Lobar pneumonia, unspecified organism (principal); I10 Essential (primary) hypertension; I44.4 Left anterior fascicular block; R94.31 Abnormal electrocardiogram [ECG] [EKG]; E03.9 Hypothyroidism, unspecified; I34.0 Nonrheumatic mitral (valve) insufficiency; Z79.1 Long term (current) use of non-steroidal anti-inflammatories (NSAID); Z79.899 Other long term (current) drug therapy; Z87.891 Personal history of nicotine dependence
CPT/HCPCS: 96365 ×2; 93005 ×2; 87040 ×2; 87070; 87088; 85025 ×2; 80048; 36415; 83735 ×2; 84100; 85610; 80061; 80076; 87081; 83605 ×2; 81003; 84484; 80053; 84145; 83880 ×2; 87804 ×2; 71045; 71046; 94640; 94760 ×2; 96375; 99285; J0456; J1650; J0696 ×4; J7030 ×2; J2930; G0378 ×2; 87086

== ENCOUNTER 2019-12-16 05:55 | Day surgery (SDC) | payer OTHER ==
[2019-12-10 09:57] LABS: Protime INR 0.94
--- NOTE | 2019-12-10 10:05 | RAD REPORT ---
EXAM DESCRIPTION: Kanwal So (2 Views)12/10/2019 9:46 am CLINICAL HISTORY: Preop for rotator cuff surgery COMPARISON: December 2018 FINDINGS: The lungs appear clear of acute infiltrate. The heart is normal size. The aorta is tortuo us/ectatic IMPRESSION: No acute abnormalities displayed
--- NOTE | 2019-12-10 14:42 | EKG ---
Test Date: 2019-12-10 Test Time: 08:19:20 Loop Machine Operator: JULIA MEASUREMENT RESULTS: Intervals: Rate: 56 WA: 158 QRSD: 90 QT: 442 QTc: 426 [place]: P: 15 WA: 158 QRS: -42 T: -29 INTERPRETIVE STATEMENTS: Sinus bradycardia with sinus arrhythmia Left axis deviation Nonspecific T wave abnormality Abnormal ECG Compared to ECG 12/31/2018 00:37:52 Left-axis deviation now present Sinus rhythm no longer present Left anterior fascicular block no longer present Prolonged QT interval no longer present T-wave abnormality still present Electronically Signed On 12-10-19 14:41:03 CDT by Hema Goins
--- OUTSIDE RECORDS SUMMARY | 2019-12-16 06:02 | XMS REPORT ---
:1950 Author Organization [facility] t Address [address] [place] [address] Care Team Providers Name Role Phone Steve GASTON Unavailable Unavailable AZIZA TRACEY Unavailable Unavailable Problems This patient has no known problems. Allergies, Adverse Reactions, Alerts This patient has no known allergies or adverse reactions. Medications This patient has no known medications. Results Test Description Test Time Test Comments Text Results Atomic Results Result Comments ROSSI MANAGER PRIVACY IN 2017-11-20 Reason for exam:->right FLUOROSCOPIC U NIT OR/30 MINUTE 11:29:00 first metatarsophalangeal UTILIZED-NO INCREMENTS lateral colateral ligament INTERPRETATION reconstruction and REQUESTED. hardware removal TROLYTES 2017-11-14 12:35:00 Test Item Value Reference Range Comments SODIUM (BEAKER) (test code = 381) 141 meq/L 136-145 POTASSIUM (BEAKER) (test code = 379) 4.0 meq/L 3.5-5.1 CHLORIDE (BEAKER) (test code = 382) 103 meq/L 98-107 CO2 (BEAKER) (test code = 355) 27 meq/L 22-29 BUN AND [id number] 12:35:00 Test Item Value Reference Range Comments BLOOD UREA NITROGEN 21 mg/dL 7-21 (BEAKER) (test code = 354) CREATININE (BEAKER) (test 0.68 mg/dL 0.57-1.25 code = 358) EGFR (BEAKER) (test code 86 mL/min/1.73 sq m EST IMATED GFR IS NOT = 1092) ACCURATE CREA TININE CLEARANCE IN PRE DICTING GLOMERULAR FILTR ATION RATE. ESTIMATED GFR IS NOT APPLICABLE F OR DIALYSIS PATIENT S. [id number] 12:05:00 Test Item Value Reference Range Comments HEMOGLOBIN (EDISON) (test code = 410) 14.0 GM/DL 11.2-15.7 CT, CTA, [id number] 17:59:00Addendum BeginsREPORT STATUS:A Addendum: I agree with the previously described non vascular findings by Dr. Alexander. Signed: Alireza Rodriguez MDReport Verified Date/Time: 10/09/2017 17:59:38 Reading Location: [place] [address] Angio Body Reading RoomAddendum EndsFINAL REPORT CT angiography of the thoracic aorta, 09 October 2007 INDICATION: This is a 67 year oldfemale with dilation of the aorta presents for assessment. This study is performed in an attempt toavoid an invasive procedure. TECHNIQUE: Spiral acquisition before and during intravenous contrast administration using a NeoAccel multidetector CT scanner. Images were obtained before and during the dynamic passage of intravenous contrast material. Multi-planar 3-D volume-rendering reconstruction was performed using an independent workstation interactively by the interpreting physician as well as the 3-D s pecialist for optimal visualisation of the thoracic aorta and its proximal branches. Please refer tothe contrast sheet scanned in the EPIC system for the amount and route of contrast given. This exam was performed according to our departmental dose-optimisation programme, which includes automated exposure control, adjustment of the mA and/or kV according to patient size and/or use of iterative reconstruction technique. Dose modulation, [...] arises at the level of the sinotubular junction, a common variant. Regarding the aorta, the [...] abnormality. No acute bony pathology is identified exc ept for the presence of some degenerative changes. [...] An addendum will be dictated regarding the non-vascular findings by the Boiler Control Technician Radiologist. Signed: Mahesh Alexander MDReport Verified Date/Time: 10/09/2017 11:03:30 Reading Location: [place] [address] Cardiology MRI [id number] 11:16:00 Test Item Value Reference Range Comments POC-CREATININE (EDISON) 0.6 mg/dL 0.6-1.3 TESTED A T [facility] 6720 REGI (test code = 1859) [facility] 77 030 POC-EGFR (EIDSON) (test 99 mL/min/1.73M2 code = 1860)
[2019-12-16] MEDS ORDERED: CEFAZOLIN/SWI 1gm 1 GM/10 ML SYR ONE (06:23)
[2019-12-16] MEDS ORDERED: Ringers Lactate 1,000 ML IV ONE ×2 (06:23→09:21)
[2019-12-16] MEDS ORDERED: MIDAZOLAM HCL 2 MG/2 ML INJ ONE (06:44)
[2019-12-16] MEDS ORDERED: ROCURONIUM 50 MG/5 ML VIAL IV ONE (06:44)
[2019-12-16] MEDS ORDERED: LIDOCAINE 2% MPF 5 ML VIAL ONE (06:44)
[2019-12-16] MEDS ORDERED: propofoL 200 MG/20 ML VIAL IV ONE (06:44)
[2019-12-16] MEDS ORDERED: FENTANYL CITR 250 MCG/5 ML ONE (06:44)
[2019-12-16] MEDS ORDERED: EPINEPHRINE/PF 1 MG/ML AMP ONE (06:50)
[2019-12-16] MEDS ORDERED: ROPLVACAINE HCL 20 ML ONE (06:52)
[2019-12-16] MEDS ORDERED: dexAMETHasone 4 MG/ML VIAL ONE (06:52)
[2019-12-16] MEDS ORDERED: EPHEDRINE SULF 50 MG/ML VIAL ONE (07:46)
[2019-12-16] MEDS ORDERED: KETOROLAC 30 MG/ML INJ ONE (09:31)
--- NOTE | 2019-12-16 09:45 | P.BOP ---
Preoperative diagnosis: right rotator cuff tear, bicipital tendinitis, impingement syndrome Postoperative diagnosis: same, SLAP tear Primary procedure: right shoulder arthroscopic rotator cuff repair Secondary procedure: SLAP debridement with biceps tenotomy Other procedure(s): right shoulder arthroscopic subacromial decompression Director Of Income Tax: NONE,NONE Estimated blood loss: <10 cc Specimen: none Findings: see dictation Anesthesia: General Implants: 1 5.5 mm arthrex corkscrew, 2- 4.75 mm swivelock Fluids & blood products: per anesthesia record Transferred to: Recovery Room Condition: Good
--- NOTE | 2019-12-16 10:55 | RAD REPORT ---
EXAM DESCRIPTION: RAD - Shoulder 1 View - 12/16/2019 10:45 am FINDINGS: Single portable AP projection was obtained following rotator cuff repair. No dislocation of the humeral head. Minimal degenerative change at the AC joint. No abnormal soft tis ada calcifications. No foreign body. No suspicious or unexpected finding.
[2019-12-16] MEDS ORDERED: HYDROCODONE/APAP 7.5/325 MG TAB ONE (11:36)
[2019-12-16 13:44] VITALS: BP 127/70; TEMP 96.8; O2SAT 93
--- NOTE | 2019-12-17 07:38 | OP ---
Date of Procedure: 12/16/2019 Surgeon: Dewayne Castaneda MD Preoperative Diagnoses: 1. Right shoulder rotator cuff tear. 2. Right shoulder bicipital tenosynovitis. 3. Right shoulder impingement syndrome. Postoperative Diagnoses: 1. Right shoulder rotator cuff tear. 2. Right shoulder bicipital tenosynovitis. 3. Right shoulder impingement syndrome. 4. Right shoulder SLAP tear. Procedure Performed: 1. Right arthroscopic rotator cuff repair. 2. Right shoulder arthroscopic flap tear debridement with biceps tenotomy. 3. Right shoulder arthroscopic subacromial decompression. Indication For Procedure: Leonie is a 69-year-old female presents to my clinic with signs, symptoms, consistent with an MRI findings consistent with rotator cuff tear and impingement syndrome, and bicipital tenosynovitis. Patient failed conservative treatments including corticosteroid injection, formal physical therapy. She reported continued pain, loss of motion as well as lost her function lost almost 6 months. I discussed with the patient at length risks and benefits associated with operative and nonoperative treatment. She expressed understanding and elected to proceed with operative treatment. Description Of Procedure: After informed consent was obtained, the patient was identified in the preoperative holding area. The right upper extremity was marked. Patient was then taken back to the PACU where she underwent a right- sided interscalene block performed by Anesthesia. She was taken back to OR, transferred to the operating table to supine fashion, placed under general endotracheal anesthesia. She was placed in the beach chair position with her extremities well padded. Right upper extremity was then examined. The patient had some diminished forward flexion and range of motion consistent with early adhesive capsulitis. Manipulation was then performed. Patient had a couple of pops with gentle forward flexion of the shoulder consistent with release of scar tissue. She had near full flexion after manipulation of the shoulder. Right upper extremity was then prepped and draped in usual sterile fashion. A time- out was initiated. The correct patient and procedure were confirmed and identified. The patient did receive preoperative prophylactic antibiotics. Via the posterior portal position, spinal needle was introduced into the glenohumeral joint and injected with 30 cc of normal saline to distend the capsule. Stab incision was made to create a posterior portal. The arthroscope was brought in via the posterior portal position and an anterior portal was also created. A diagnostic arthroscopy was performed. The patient was noted to have overall pristine cartilage without significant chondromalacia noted. She was noted to have intact anterior and posterior labrum that was stable to probe. She was noted to have a SLAP tear and some significant hyperemia and inflammation of the superior labrum and biceps tendon anchor. There was also fraying of the biceps tendon anchor and inflammation of the extraarticular portion of the tendon. A meniscal biter was brought in via the anterior portal and a biceps tenotomy was performed. Superior labrum was then debrided with the arthroscopic shaver. The patient was noted have intact subscapularis. No loose bodies were found within the axillary pouch. The anterior supraspinatus was significantly frayed and once probed, demonstrated a full-thickness rotator cuff tear. The lateral portal was created. An obturator was brought into the lateral portal into the shoulder joint consistent with full-thickness tear. Arthroscopic shaver was brought into the lateral portal and the supraspinatus tear was debrided using the arthroscopic shaver. The arthroscope was then brought into the subacromial space. A subacromial bursectomy was performed. Full-thickness supraspinatus tear was then identified. Using an arthroscopic shaver, the supraspinatus was debrided back to healthy-appearing tissue. The greater tuberosity was debrided to bleeding bony bed to aid with healing of the rotator cuff repair. A stab incision was made in lateral to the the acromion for placement of the medial row anchor. A 5.5 mm Arthrex corkscrew was placed just lateral to the articular surface and a 5.5 mm Arthrex corkscrew was placed which was double loaded. Sutures were then passed through the supraspinatus tear from anterior to posterior fashion in horizontal mattress fashion. Sutures were then tied to reduce the supraspinatus off the greater tuberosity. Next, 2 lateral anchors were then placed using a 4.75 mm SwiveLock with sutures tied in a crisscross fashion anteriorly and posterior. There was overall reduction of the supraspinatus onto the greater tuberosity footprint. Next, there was noted to be some fraying of the coracoacromial ligament and some under-sided spurring of the acromion. An acromioplasty was performed using arthroscopic bur completing the subacromial decompression. After this was completed, the arthroscopic instruments were removed without complication. Wound was then irrigated thoroughly with normal saline. Portals were then approximated using a 3-0 Monocryl and the subcutaneous tissue approximated using a 2-0 Vicryl. Sterile dressings were applied. The patient was placed in a shoulder immobilizer, awakened, and transferred to PACU in stable condition. Postoperative Plan: The patient will begin physical therapy for medium rotator cuff repair protocol at approximately 3 weeks as she has some findings consistent with early adhesive capsulitis. She will follow up next week for wound check. ELSIE/GERALD Voice ID: [id number] Report ID: [id number] [facility] CENTEROlivier
== END 2019-12-16 12:00 | disposition home or self-care (01) ==
LOC: OR 05:55
PROVIDERS: ATTEND Orthopaedic Surgery Sports Medicine
PROC: 0RNJ4ZZ Release Right Shoulder Joint, Percutaneous Endoscopic Approach (ICD-10-PCS; 2019-12-16)
PROC: 0RBJ4ZZ Excision of Right Shoulder Joint, Percutaneous Endoscopic Approach (ICD-10-PCS; 2019-12-16)
PROC: 0LQ14ZZ Repair Right Shoulder Tendon, Percutaneous Endoscopic Approach (ICD-10-PCS; principal; 2019-12-16 07:30)
DX: M75.101 Unspecified rotator cuff tear or rupture of right shoulder, not specified as traumatic (principal); M75.21 Bicipital tendinitis, right shoulder; M75.41 Impingement syndrome of right shoulder; M75.51 Bursitis of right shoulder; I10 Essential (primary) hypertension; E78.5 Hyperlipidemia, unspecified; E07.9 Disorder of thyroid, unspecified; Z91.041 Radiographic dye allergy status; Z83.3 Family history of diabetes mellitus; Z82.49 Family history of ischemic heart disease and other diseases of the circulatory system
CPT/HCPCS: 93005; 36415; 85610; 85730; 71046; 73020; 29827; 29826; 29822; J2704; J0171; J2250; J3010; J2795; J0690; J7120 ×2